=== PATIENT | female | born 1965 | race Caucasian/White ===

== ENCOUNTER 2019-11-02 08:59 | Outpatient (CLI) | payer OTHER, SELFPAY ==
--- NOTE | ~2019-11-02 | MM_ITS ---
EXAMINATION: MM screening [facility] BI w patria HISTORY: Screening mammogram TECHNIQUE: Craniocaudal and mediolateral oblique 3-D tomosynthesis images were obtained and synthetic 2-D images were generated. CAD analysis was submitted and interpreted. COMPARISON: 05/05/2018, 01/21/2017, 12/26/2015 bilateral digital screening mammogram examinations BREAST PARENCHYMAL COMPOSITION: There are scattered areas of fibroglandular density. FINDINGS: There is no evidence of suspicious mass, calcification, or architectural distortion to sugg est malignancy in either breast. There has been no suspicious interval change. IMPRESSION: 1. No mammographic evidence of malignancy. 2. Recommend routine screening mammography in one year. BI-RADS Category 1: Negative Reviewed, dictated and finalized at location A.
== END 2019-11-02 09:00 | disposition home or self-care (01) ==
PROVIDERS: PCP Internal Medicine
DX: Z12.31 Encounter for screening mammogram for malignant neoplasm of breast (principal)
CPT/HCPCS: 77063; 77067

== ENCOUNTER 2020-02-15 11:53 | Emergency (ER) | payer OTHER, SELFPAY ==
[2020-02-15 11:58] VITALS: BP 136/82; PULSE 75; RESP 12; TEMP 36.6; O2SAT 99
--- NOTE | 2020-02-15 12:04 | ED.FEMALEGU ---
HPI - Female Genitourinary General Chief complaint: Urogenital-Female Stated complaint: pos uti Time Seen by Provider: 02/15/20 12:04 Source: patient Mode of arrival: ambulatory Limitations: no limitations History of Present Illness HPI Narrative: Allyssa Lopez is a 54 yo female with a PMH of anxiety, mld depression, who comes to express care with 2 weeks of uti symptoms that have worsened in last 24 hours and now has suprapubic discomfort. Patient started with symptoms 2 weeks ago. Few days treated with Azo cranberry juice and water and seemed to be improving until last night when pain on urination increased and has developed suprapubic pain since then; no fever nausea or vomiting Related Data Home Medications Medication Instructions Recorded Confirmed sertraline 100 mg PO DAILY 02/15/20 02/15/20 Allergies Allergy/AdvReac Type Severity Reaction Status Date / Time Penicillins Allergy Unknown RASH Verified 02/15/20 12:01 Latex, Natural Rubber Allergy Rash Verified 02/15/20 12:01 Review of Systems Review of Systems: Narrative: CONSTITUTIONAL: Denies fever, chills, sweats. EYES: Denies visual changes, redness, discharge. ENT: Denies rhinorrhea, congestion, sore throat, otalgia. CARDIOVASCULAR: Denies chest pain, palpitations, edema. RESPIRATORY: Denies dyspnea, wheezing, cough GASTROINTESTINAL: Denies abdominal pain, nausea, vomiting, diarrhea. GENITOURINARY: Has dysuria, no hematuria, no abnormal discharge. Suprapubic tenderness SKIN: Denies rash or itching. NEUROLOGIC: Denies numbness, or focal weakness. PSYCHIATRIC: Denies anxiety or depression. PMFSH Past Medical History Medical History (Updated 02/15/20 @ 12:13 by Miracle Ramírez CNP) Anxiety Mild depression Post hysterectomy menopause Family History Family History Other High cholesterol Hypertension Social History Social History (Updated 02/15/20 @ 12:08 by Miracle Ramírez CNP) Smoking status: Never smoker Alcohol intake: current Comments At time of signature, I agree with nursing past medical, surgical, social and family history. There is no relevant family history pertinent to the presenting complaint. Exam Narrative: Exam Narrative: GENERAL: This is a well-nourished, well-developed patient, in mild distress. HEAD: normocephalic, atraumatic. EYES: Sclera clear/white. Vision is grossly intact. EARS: External ears normal. Hearing grossly intact. NOSE: External nose normal nares without redness, no rhinorrhea. THROAT: Mucous membranes moist, NECK: Neck supple, CARDIOVASCULAR: Regular rate and rhythm without murmurs, gallops, or rubs. RESPIRATORY: Clear to auscultation. Breath sounds equal bilaterally. No wheezes, rales, or rhonchi. GASTROINTESTINAL: Abdomen soft, mild suprapubic tenderness SKIN: warm, intact with no suspicious lesions or rash, good texture and turgor. NEURO: awake, alert, and oriented to person, place and time. There were no obvious focal neurologic abnormalities. Steady gait EXTREMITIES: Normal range of motion. BACK: Nontender without deformity Course Course Emergency Course: UA dip-results 2+ blood, 3+ leukocyte esterase, protein. Urine sent for culture Started on Macrobid Pyridium-encourage patient to hydrate warned of high radium turning urine orange; GERD for fever If symptoms worsen such as fever nausea or vomiting or dysuria does not improve should go to PCP or ER Vital Signs Vital signs: Vital Signs Temperature 97.9 F 02/15/20 11:58 Pulse Rate 75 02/15/20 11:58 Respiratory Rate 12 02/15/20 11:58 Blood Pressure 136/82 02/15/20 11:58 Pulse Oximetry 99 02/15/20 11:58 Temperature 97.9 F 02/15/20 11:58 Pulse Rate 75 02/15/20 11:58 Respiratory Rate 12 02/15/20 11:58 Blood Pressure 136/82 02/15/20 11:58 Pulse Oximetry 99 02/15/20 11:58 MDM - Female Genitourinary Differential Diagnosis Differential
== END 2020-02-15 12:20 | disposition home or self-care (01) ==
PROVIDERS: Emergency Provider Nurse Practitioner; PCP Internal Medicine
DX: N30.01 Acute cystitis with hematuria (principal); F41.9 Anxiety disorder, unspecified; F32.9 Major depressive disorder, single episode, unspecified
CPT/HCPCS: 81003; 87077; 87086; 87088; 87186; 99213; G0463

== ENCOUNTER → 2020-10-27 01:43 | Outpatient (CLI) | payer OTHER, SELFPAY ==
[2020-10-28 19:27] LABS: SARS-CoV-2 RNA PCR Negative
== END ==
PROVIDERS: PCP Internal Medicine; Visit Provider Internal Medicine Gastroenterology
DX: Z01.812 Encounter for preprocedural laboratory examination (principal); Z20.822 Contact with and (suspected) exposure to COVID-19
CPT/HCPCS: C9803; U0003; U0005

== ENCOUNTER 2020-10-30 01:53 | Day surgery (SDC) | payer OTHER, SELFPAY ==
[2020-10-22 12:56] VITALS: BMI 21.2
[2020-10-30 09:12] VITALS: BP 173/74; PULSE 81; RESP 18; TEMP 36.4; O2SAT 100; BMI 21.4
[2020-10-30] MEDS: LACTATED RINGERS 1,000 ML 150 ML IV CONT (09:20)
--- NOTE | 2020-10-30 09:27 | WPDANESEPPF ---
Anes - Initial Pre Proc Eval Procedure: Operation Date: 10/30/20 12:45 Proposed Procedures p Screening Colonoscopy - Ok Cespedes MD Date/Time: 10/30/20 09:27 Surgeon: Ok Cespedes MD Pre Op Diagnosis: family hx of colon ca, neoplasm screening Patient Data Age: 55 Gender: F Height: 6 ft 2 in Weight: 76 kg Last Vital Signs Temp 97.6 F 10/30/20 09:12 Pulse 81 10/30/20 09:12 Resp 18 10/30/20 09:12 BP 173/74 H 10/30/20 09:12 Pulse Ox 100 10/30/20 09:12 Allergies Allergy/AdvReac Type Severity Reaction Status Date / Time Penicillins Allergy Unknown RASH Verified 10/30/20 09:11 Latex, Natural Rubber Allergy Rash Verified 10/30/20 09:11 Home Medications Medication Instructions Recorded Confirmed Type sertraline 100 mg PO DAILY 02/15/20 10/30/20 History Patient hx anesthesia problems: none Family hx anesthesia problems: none [facility] Past Medical History Medical History (Updated 02/16/20 @ 00:00 by Jorge Smith) Anxiety Mild depression Post hysterectomy menopause Family History Family History Other High cholesterol Hypertension Social History Social History (Updated 02/15/20 @ 12:08 by Miracle Ramírez CNP) Smoking status: Former smoker Tobacco type: cigarettes Alcohol intake: current Drinks per week: 7 Living arrangements: with family Spiritual care concerns: No Anes - Eval Final PreProcedure Day of Procedure 10/30/20 09:27 Patient weight: normal Heart: regular rate and rhythm Lungs: clear to auscultation Airway: Mallampati scale class II Neurological: alert and oriented Last oral intake: >/= 8 hours ASA classification: II Emergent: no Anesthetic plan: proceed Anesthesia type and monitoring: general GIVS and standard monitoring Informed Consent: The patient's anesthetic plan and its attendant risks and benefits were discussed with the patient/family/POA. Questions were solicited and answers provided to the satisfaction of the patient/family/POA.
--- NOTE | 2020-10-30 09:38 | PM.HPGS ---
History of Present Illness History of Present Illness Consent: Risks, benefits, and alternatives have been discussed and questions answered. Patient agrees to proceed with procedure. Chief complaint: family hx of colon ca, neoplasm screening Narrative: Allyssa Lopez is a 55 year old female with last colonoscopy 5 years ago, mother had colon cancer Review of Systems Constitutional: Constitutional: Denies headache(s) and Denies weakness Eyes: Eyes: Denies blurry vision ENT: Reports Normal hearing present, Denies headache(s) and Denies neck pain Cardiovascular: Cardiovascular: Denies chest pain and Denies dyspnea Respiratory: Respiratory: Denies dyspnea Gastrointestinal: Gastrointestinal: Reports no additional gastrointestinal complaints Genitourinary: Genitourinary: Denies dysuria Musculoskeletal: Musculoskeletal: Denies neck pain Integumentary/Breasts: Skin/Breast: Denies dry skin Neurologic: Reports Normal hearing present, Denies headache(s) and Denies weakness Psychiatric: Psychiatric: Denies anxiety Endocrine: Endocrine: Denies change in body appearance Hematologic/Lymphatic: Hematologic/Lymphatic: Denies easy bleeding Allergic/Immunologic: Allergic/Immunologic: Denies urticaria PMFSH Past Medical History Medical History (Updated 10/30/20 @ 09:39 by Ok Cespedes MD) Anxiety Family history of colon cancer in mother Mild depression Post hysterectomy menopause Family History Family History Other High cholesterol Hypertension Social History Social History (Updated 02/15/20 @ 12:08 by Miracle Ramírez CNP) Smoking status: Former smoker Tobacco type: cigarettes Alcohol intake: current Drinks per week: 7 Living arrangements: with family Spiritual care concerns: No Meds Home Medications and Allergies Home Medications Medication Instructions Recorded Confirmed Type sertraline 100 mg PO DAILY 02/15/20 10/30/20 History Allergies Allergy/AdvReac Type Severity Reaction Status Date / Time Penicillins Allergy Unknown RASH Verified 10/30/20 09:11 Latex, Natural Rubber Allergy Rash Verified 10/30/20 09:11 Vital Signs Vital Signs - 24 hr 10/30/20 09:12 Temperature 97.6 F Pulse Rate 81 Respiratory Rate 18 Blood Pressure 173/74 H Pulse Oximetry 100 Exam Const: General: comfortable and no acute distress HENMT: General nose exam: Normal nares present Eyes: General: appearance normal, both eyes and all related structures Neck: Neck: no JVD Resp: Auscultation: clear to auscultation bilaterally Cardio: Rate: regular rate Rhythm: regular rhythm GI: Inspection: non-distended GI Palp: Yes Soft to palpation Skin: General skin exam: normal color Neuro: General: gait normal Speech: normal speech Extrem: General: normal to inspection Psych: Mental Status: mental status grossly normal Assessment and Plan Assessment and plan (1) Family history of colon cancer in mother: Code(s): Z80.0 - Family history of malignant neoplasm of digestive organs Status: Acute Assessment and Plan: colonoscopy
[2020-10-30 09:59] VITALS: BP 88/60; PULSE 54; RESP 18; O2SAT 98
[2020-10-30 10:09] VITALS: BP 94/60; PULSE 56; RESP 18; O2SAT 100
[2020-10-30 10:19] VITALS: BP 99/63; PULSE 88; RESP 20; O2SAT 100
== END 2020-10-30 10:36 | disposition home or self-care (01) ==
PROVIDERS: PCP Internal Medicine; Visit Provider Internal Medicine Gastroenterology
PROC: 0DJD8ZZ Inspection of Lower Intestinal Tract, Via Natural or Artificial Opening Endoscopic (ICD-10-PCS; CPT 45378; principal; 2020-10-30 12:45)
DX: Z12.11 Encounter for screening for malignant neoplasm of colon (principal); Z80.0 Family history of malignant neoplasm of digestive organs; K64.8 Other hemorrhoids; F41.8 Other specified anxiety disorders; Z87.891 Personal history of nicotine dependence
CPT/HCPCS: 45378; C9803; J2001; J2704; J7120; U0003; U0005

== ENCOUNTER 2021-03-20 09:49 | Outpatient (CLI) | payer OTHER, SELFPAY ==
--- NOTE | ~2021-03-20 | MM_ITS ---
EXAMINATION: MM screening [facility] BI w patria HISTORY: Screening mammogram TECHNIQUE: Craniocaudal and mediolateral oblique 3-D tomosynthesis images were obtained and synthetic 2-D images were generated. CAD analysis was submitted and interpreted. COMPARISON: 11/02/2019, 05/05/2018, 01/21/2017 bilateral digital screening mammogram examinations BREAST PARENCHYMAL COMPOSITION: There are scattered areas of fibroglandular density. FINDINGS: There is a 1.9 x 2.1 cm circumscribed opacity consistent with a skin lesion along the lower inner quadrant of the right breast anteriorly. There is no evidence of suspicious mass, calcificatio n, or architectural distortion to suggest malignancy in either breast. There has been no suspicious i nterval change. IMPRESSION: 1. No mammographic evidence of malignancy. 2. Recommend routine screening mammography in one year. BI-RADS Category 2: Benign finding(s). Reviewed, dictated and finalized at location A.
== END 2021-03-20 09:50 | disposition home or self-care (01) ==
LOC: ANHIMG 09:50
PROVIDERS: PCP Internal Medicine
DX: Z12.31 Encounter for screening mammogram for malignant neoplasm of breast (principal)
CPT/HCPCS: 77063; 77067

== ENCOUNTER 2022-08-06 09:19 | Outpatient (CLI) | payer OTHER, SELFPAY ==
--- NOTE | ~2022-08-06 | MM_ITS ---
EXAMINATION: MM screening [facility] BI w patria HISTORY: 03/20/2021, 11/02/2019, 05/05/2018 TECHNIQUE: Craniocaudal and mediolateral oblique 3-D tomosynthesis images were obtained and synthetic 2-D images were generated. CAD analysis was submitted and interpreted. COMPARISON: 03/20/2021, 11/02/2019, 05/05/2018 BREAST PARENCHYMAL COMPOSITION: There are scattered areas of fibroglandular density. FINDINGS: No suspicious mass, calcification, or architectural distortion are identified in either ruel ast to suggest malignancy. There has been no suspicious interval change. IMPRESSION: 1. No mammographic evidence of malignancy. 2. Recommend routine screening mammography in one year. BI-RADS Category 1: Negative Reviewed, dictated and finalized at location A. S COORDINATOR
== END 2022-08-06 09:20 | disposition home or self-care (01) ==
LOC: ANHIMG 09:21
DX: Z12.31 Encounter for screening mammogram for malignant neoplasm of breast (principal)
CPT/HCPCS: 77063; 77067